=== PATIENT | female | born 1970 | race Two or more races ===

== ENCOUNTER 2022-06-03 02:09 | Inpatient (IN) | payer MEDICAID, OTHER ==
[~2022-06-03] VITALS: Ht 170.2 cm; Wt 156.0 kg
--- NOTE | 2022-06-03 02:22 | NUR ---
BIBRA FOR C/O SOB X 2 DAYS. PER EMS SATTING AT 86% ON RA . PT ARRIVED RECEIVING BREATHING TREATMENT ON O2 AT 15LPM AND SATTING 96%. REFUSED CPAP PER EMS. A, OX4. PLACED IN BED 3 ER ON MONITOR
[2022-06-03] MEDS ORDERED: ALBUTEROL FS 2.5 MG/3 ML VIAL.NEB ONE (02:50)
[2022-06-03] MEDS ORDERED: IPRATROPIUM NEB FS 0.5 MG/2.5 ML AMPUL.NEB ONE (02:50)
[2022-06-03] MEDS ORDERED: methylPREDNISolone SOD SUCC 125 MG/2ML VIAL ONE (02:52)
[2022-06-03] MEDS ORDERED: LORAZEPAM INJ 2 MG/ML VIAL ONE (02:52)
--- NOTE | 2022-06-03 02:58 | NUR ---
BLOOD COLLECTED AND SENT TO LAB
--- NOTE | 2022-06-03 02:58 | NUR ---
RT AT BEDSIDE
--- NOTE | 2022-06-03 02:58 | NUR ---
COVID AND FLU SWABD SONE AND SENT TO LAB
[2022-06-03 03:00] LABS: BASOPHILS % (AUTO) 0.4 % (0.0-2.0); EOSINOPHILS % (AUTO) 0.8 % (0.0-6.0); HEMATOCRIT 39 % (33-45); HEMOGLOBIN 11.9 g/dL (11.5-14.8); LYMPHOCYTES # (AUTO) 1.8 K/uL (0.8-4.8); LYMPHOCYTES % (AUTO) 20.8 % (20.0-44.0); MEAN CORPUSCULAR HGB CONC 31 g/dl (31.0-36.0); MEAN CORPUSCULAR VOLUME 84 fL (82-100); MONOCYTES # (AUTO) 0.7 K/uL (0.1-1.30); PLATELET COUNT (AUTO) 213 K/uL (150-450); WHITE BLOOD COUNT (AUTO) 8.6 K/uL (4.3-11.0)
[2022-06-03] MEDS ORDERED: methylPREDNISolone SOD SUCC 125 MG/2ML VIAL IV ONE (03:00)
[2022-06-03] MEDS ORDERED: LORAZEPAM INJ 2 MG/ML VIAL IV ONE (03:00)
[2022-06-03] MEDS ORDERED: IPRATROPIUM NEB FS 0.5 MG/2.5 ML AMPUL.NEB NEB ONE (03:00)
[2022-06-03] MEDS ORDERED: ALBUTEROL FS 2.5 MG/3 ML VIAL.NEB NEB ONE (03:00)
[2022-06-03 03:01] LABS: CALCIUM, SERUM 8.8 mg/dL (8.5-10.1); CARBON DIOXIDE 32 mmol/L (21-32); CHLORIDE 102 mmol/L (98-107); CREATININE 0.8 mg/dL (0.6-1.3); GLUCOSE 122 mg/dL (74-106); POTASSIUM 4.4 mmol/L (3.5-5.1); SODIUM SERUM 137 mmol/L (136-145); UREA NITROGEN, BLOOD 19 mg/dL (7-18)
[2022-06-03 03:14] LABS: ALANINE AMINOTRANSFERASE 41 U/L (12-78); ALKALINE PHOSPHATASE 112 U/L (46-116); ASPARTATE AMINOTRANSFERASE 37 U/L (15-37); BILIRUBIN,DIRECT 0.1 mg/dL (0.0-0.2); BILIRUBIN,TOTAL 0.4 mg/dL (0.2-1.0); TOTAL PROTEIN, SERUM 7.5 g/dL (6.4-8.2)
[2022-06-03] MEDS ORDERED: CEFTRIAXONE 1GM BAG (ER ONLY) 1 GM/50 ML PIGGYBACK IV ONE (04:00)
[2022-06-03] MEDS ORDERED: ASPIRIN 325 MG TABLET PO ONE (04:00)
[2022-06-03] MEDS ORDERED: CEFTRIAXONE 1GM BAG (ER ONLY) 50 ML IV ONE (04:06)
[2022-06-03] MEDS ORDERED: ASPIRIN 325 MG TABLET ONE (04:06)
[2022-06-03 04:17] VITALS: BP 112/83
--- NOTE | 2022-06-03 04:42 | NUR ---
BED 308-1
[2022-06-03] MEDS ORDERED: ACETAMINOPHEN 325 MG TABLET PO PRN (05:00)
[2022-06-03] MEDS ORDERED: Z GUARD REMEDY 4 OZ OINT TP PRN (05:00)
[2022-06-03] MEDS ORDERED: ONDANSETRON HCL/PF 4 MG/2 ML VIAL IVP PRN (05:00)
--- NOTE | 2022-06-03 05:02 | NUR ---
REPORT GIVEN TO MATEUS COREA FOR DANIA
[2022-06-03 06:36] LABS: BASOPHILS % (AUTO) 0.2 % (0.0-2.0); BILIRUBIN,TOTAL 0.3 mg/dL (0.2-1.0); CALCIUM, SERUM 8.5 mg/dL (8.5-10.1); CREATININE 0.9 mg/dL (0.6-1.3); EOSINOPHILS % (AUTO) 0.1 % (0.0-6.0); HEMATOCRIT 37 % (33-45); HEMOGLOBIN 11.4 g/dL (11.5-14.8); LYMPHOCYTES # (AUTO) 0.7 K/uL (0.8-4.8); LYMPHOCYTES % (AUTO) 10.3 % (20.0-44.0); MAGNESIUM 2.2 mg/dL (1.8-2.4); MEAN CORPUSCULAR HGB CONC 31 g/dl (31.0-36.0); MEAN CORPUSCULAR VOLUME 84 fL (82-100); MONOCYTES # (AUTO) 0.3 K/uL (0.1-1.30); MONOCYTES % (AUTO) 3.7 % (2.0-12.0); NEUTROPHILS # (AUTO) 6.2 K/uL (1.8-8.9); NEUTROPHILS % (AUTO) 85.7 % (43.0-81.0); PLATELET COUNT (AUTO) 194 K/uL (150-450); POTASSIUM 4.4 mmol/L (3.5-5.1); RED BLOOD CELL COUNT(AUTO) 4.42 MIL/uL (4.0-5.2); TOTAL PROTEIN, SERUM 7.3 g/dL (6.4-8.2); WHITE BLOOD COUNT (AUTO) 7.2 K/uL (4.3-11.0)
--- NOTE | 2022-06-03 07:01 | NUR ---
PATIENT TRANSFERRED TO [facility]
--- NOTE | 2022-06-03 07:18 | NUR ---
REGISTERED DIETETIC TECHNICIAN OPENING NOTES RECEIVED PATIENT A/O X 4, ABLE TO MAKE NEEDS KNOWN. PATIENT IS ON OXYGEN AT 5LPM VIA NASAL CANULA WITH EQUAL AND UNLABORED BREATHING. SATURATING AT 98%. PATIENT WAS REMOVING HER OXYGEN. HEALTH TEACHING DONE REGARDING IMPORTANCE OF OXYGEN, VERBALIZED UNDERSTANDING AND APPRECIATION. WITH IV ACCESS ON THE RAC #20G, ON SALINE LOCK, PATENT AND INTACT. ON EXTERNAL DIRECTOR OCCUPATIONAL, PATIENT REFUSED TO PUT IN ON RIGHT NOW. COMFORT MEASURES PROVIDED. TRIED TO ASK PATIENT REGARDING ADMISSION INQUIRIES, SAFETY MEASURES IN PLACE; BED IN LOW, LOCKED POSITION; SIDE RAILS UP X 2, CALL LIGHT WITHIN REACH AT ALL TIMES; WILL CONTINUE WITH PLAN OF CARE.
[2022-06-03] MEDS ORDERED: PANTOPRAZOLE 40 MG TABLET.DR PO SCH (07:30)
[2022-06-03] MEDS ORDERED: IPRATROPIUM NEB FS 0.5 MG/2.5 ML AMPUL.NEB NEB SCH (07:35)
[2022-06-03] MEDS ORDERED: ALBUTEROL FS 2.5 MG/3 ML VIAL.NEB NEB SCH (07:35)
[2022-06-03] MEDS ORDERED: DOXYCYCLINE HYCLATE (100 MG) 100 MG TABLET PO SCH (09:00)
[2022-06-03] MEDS ORDERED: ENOXAPARIN SODIUM 40 MG/0.4 ML DISP.SYRIN SQ SCH (09:00)
[2022-06-03] MEDS ORDERED: IPRA12.9 IH (09:48)
[2022-06-03] MEDS ORDERED: BUDE10.2 IH (09:48)
[2022-06-03] MEDS ORDERED: [UNRECOGNIZED DRUG - REMARK] PO (09:49)
[2022-06-03] MEDS ORDERED: MENTHOL/CETYLPYRD (CEPACOL) 1 LOZ LOZENGE PO PRN (10:30)
[2022-06-03] MEDS ORDERED: ALPRAZOLAM 0.25 MG TABLET PO PRN (10:30)
--- NOTE | 2022-06-03 10:40 | NUR ---
CLIN NURSE SPEC NOTE PATIENT SEEN WAS SHOUTING BECAUSE SHE WANTED TO SMOKE. HEALTH TEACHING DONE REGARDING HEALTH IMPACTS OF SMOKING AND DISEASE PROCESS OF COPD AND CHF. PATIENT DOESN'T WANT TO LISTEN. I WAS ABOUT TO EXPLAIN TO HER THE SMOKING POLICY, BUT PATIENT STARTED TO WALK OUT OF THE ROOM AND STARTED TO SHOUT IN THE STATION. SHE WAS SAYING SHE WILL SMOKE THERE. OUSMANE RODRIGUEZ CALLED. WE EXPLAINED TO HER THAT THERE ARE PATIENT'S WHO ARE IN OXYGEN. SHE SAID SHE WILL JUST SIGN OUT. PATIENT IS ALERT AND ORIENTED X 4. HOSPITALIST AWARE OF PATIENT'S INTENTION TO GO HOME. PATIENT SIGNED AMA FORM AND ATTACHED TO CHART. IV ACCESS REMOVED AND COVERED WITH DRY DRESSING, TOLERATED WELL. PATIENT REFUSED BODY CHECK AND REFUSED TO SIGN INVENTORY LIST. PATIENT REFUSED TO RIDE THE WHEELCHAIR. SHE WAS ESCORTED BY THE SECURITY TO LOBBY FOR DISCHARGE AGAINST MEDICAL ADVISE.
[2022-06-03] MEDS ORDERED: methylPREDNISolone SOD SUCC 40 MG/ML VIAL IV SCH (13:00)
[2022-06-04] MEDS ORDERED: ASPIRIN 81 MG TAB.CHEW PO SCH (09:00)
== END 2022-06-03 10:15 | disposition left against medical advice (07) | DRG 140 ==
LOC: ER 02:12 → TELE 04:45
PROVIDERS: ADMIT Student in an Organized Health Care Education/Training Program; ATTEND Student in an Organized Health Care Education/Training Program
DX: J44.1 Chronic obstructive pulmonary disease with (acute) exacerbation (principal); J96.01 Acute respiratory failure with hypoxia; I21.A1 Myocardial infarction type 2; E44.0 Moderate protein-calorie malnutrition; I50.9 Heart failure, unspecified; E86.0 Dehydration; E88.09 Other disorders of plasma-protein metabolism, not elsewhere classified; I11.0 Hypertensive heart disease with heart failure; K74.60 Unspecified cirrhosis of liver; Z20.822 Contact with and (suspected) exposure to COVID-19; Z53.29 Procedure and treatment not carried out because of patient's decision for other reasons; Z86.19 Personal history of other infectious and parasitic diseases; Z79.51 Long term (current) use of inhaled steroids; Z72.0 Tobacco use; D64.9 Anemia, unspecified; R45.1 Restlessness and agitation; R79.89 Other specified abnormal findings of blood chemistry
CPT/HCPCS: 36415; 71045-TC; 80048-TC; 80053-TC; 80061-TC; 80076-TC; 83605-TC; 83735-TC; 83880; 84484-TC; 85025-TC; 85378-TC; 87040-TC; 94799-TC; C9803; G0378; J0696; J1650; J2060; J2930